=== PATIENT | male | born 1970 | race Caucasian/White ===

== ENCOUNTER 2020-04-16 14:08 | Inpatient (IN) | payer MEDICAID ==
[~2020-04-16] VITALS: Ht 180.3 cm; Wt 85.0 kg
[2020-04-16] MEDS: metoprolol tartrate 25mg tablet PO SCH
[2020-04-16] MEDS: olanzapine 10mg tablet PO SCH
[2020-04-16] MEDS ORDERED: normal saline 1000ml 1,000 ML IV ONE (14:55)
[2020-04-16 14:57] LABS: BASOPHILS # (AUTO) 0.1 X10'3 (0-0.2); BASOPHILS % (AUTO) 0.7 % (0-1); EOSINOPHILS # (AUTO) 0.3 X10'3 (0-0.9); EOSINOPHILS % (AUTO) 3.7 % (0-6); HEMATOCRIT 40.7 % (42.0-52.0); HEMOGLOBIN 13.9 g/dl (14.0-17.9); LYMPHOCYTES # (AUTO) 1.3 X10'3 (1.1-4.8); LYMPHOCYTES % (AUTO) 15.3 % (21-51); MEAN CORPUSCULAR HEMOGLOBIN 29.5 PG (27.0-31.0); MEAN CORPUSCULAR HGB CONC 34.1 g/dL (33.0-36.5); MEAN CORPUSCULAR VOLUME 86.4 FL (78-98); MEAN PLATELET VOLUME 8.7 FL (7.4-10.4); MONOCYTES # (AUTO) 0.9 X10'3 (0-0.9); MONOCYTES % (AUTO) 10.9 % (2-12); NEUTROPHILS # (AUTO) 5.9 X10'3 (1.8-7.7); NEUTROPHILS % (AUTO) 69.4 % (42-75); PLATELET COUNT 191 X10'3 (140-440); RED BLOOD COUNT 4.71 X10'6 (4.70-6.10); RED CELL DISTRIBUTION WIDTH 15.6 % (11.5-14.5); WHITE BLOOD COUNT 8.4 X10'3 (4.5-11.0)
[2020-04-16 15:09] LABS: D-DIMER 2.49 MG/L FEU (0-0.50)
[2020-04-16 15:14] LABS: ALANINE AMINOTRANSFERASE 112 U/L (12-78); ALBUMIN 4.1 G/DL (3.4-5.0); ALBUMIN/GLOBULIN RATIO 1.2 (1.1-1.5); ALKALINE PHOSPHATASE 101 IU/L (46-116); ANION GAP 14 (8-16); ASPARTATE AMINO TRANSFERASE 145 U/L (10-37); BILIRUBIN,TOTAL 0.4 MG/DL (0.1-1.0); BLOOD UREA NITROGEN 10 MG/DL (7-18); BUN/CREATININE RATIO 10.1 (5.4-32.0); CALCIUM 9.1 MG/DL (8.5-10.1); CHLORIDE 105 MMOL/L (99-107); CREATININE 0.99 MG/DL (0.60-1.10); GLUCOSE 115 MG/DL (70-104); SODIUM 142 MMOL/L (135-145); TOTAL CARBON DIOXIDE 22.7 MMOL/L (24-32); TOTAL PROTEIN 7.4 G/DL (6.4-8.2); eGFR 80 ML/MIN
[2020-04-16 15:24] LABS: POTASSIUM 4.2 MMOL/L (3.5-5.1)
[2020-04-16] MEDS ORDERED: aspirin 325mg tablet PO ONE (15:25)
[2020-04-16] MEDS ORDERED: iohexol 350MG/ML 100ml bottle IV ONE ×2 (15:25→16:02)
[2020-04-16] MEDS ORDERED: heparin 10,000 units/1 ML INJ IV PRN ×2 (15:30→17:25)
[2020-04-16] MEDS ORDERED: heparin 10,000 units/1 ML INJ IV ONE ×3 (15:30→17:25)
[2020-04-16] MEDS ORDERED: nitroGLYCERIN 0.4mg/hour patch TD ONE (15:35)
[2020-04-16 15:57] LABS: PARTIAL THROMBOPLASTIN TIME 23 SECONDS (22-32)
[2020-04-16 16:16] LABS: URINE AMPHETAMINE SCREEN NEGATIVE (Neg); URINE BARBITUATE SCREEN NEGATIVE (Neg); URINE BENZODIAZEPINES SCREEN NEGATIVE (Neg); URINE CANNABINOID SCREEN NEGATIVE (Neg); URINE COCAINE SCREEN NEGATIVE (Neg); URINE METHADONE SCREEN NEGATIVE (Neg); URINE OPIATE SCREEN NEGATIVE (Neg); URINE PHENCYCLIDINE SCREEN NEGATIVE (Neg)
[2020-04-16] MEDS: heparin 25,000 UNIT/250ml bag 250 ML IV SCH (16:17)
--- NOTE | 2020-04-16 16:37 | NUR ---
PA INFORMED PATIENT IS COVID POSITIVE
[2020-04-16] MEDS ORDERED: heparin 25,000 UNIT/250ml bag 250 ML IV SCH (17:25)
[2020-04-16] MEDS ORDERED: mag hydrox/Alum hydrox/simeth 30ml oral suspension PO PRN (17:25)
[2020-04-16] MEDS ORDERED: HYDROcodone/acetaminophen 10/325mg tab PO PRN (17:25)
[2020-04-16] MEDS ORDERED: HYDROcodone/acetaminophen 5mg/325mg tablet PO PRN (17:25)
[2020-04-16] MEDS ORDERED: morphine 2 MG/ML inj. syringe IV PRN ×2 (17:25)
[2020-04-16] MEDS ORDERED: ondansetron/PF 4mg/2ml inj IV PRN (17:25)
[2020-04-16] MEDS ORDERED: magnesium hydroxide 30ml (MOM) UD suspension PO PRN (17:25)
[2020-04-16] MEDS ORDERED: acetaminophen 325mg tablet PO PRN ×2 (17:25)
[2020-04-16] MEDS ORDERED: OLAN10TA19 PO (17:29)
[2020-04-16] MEDS ORDERED: ACET-2119 PO (17:29)
[2020-04-16] MEDS ORDERED: ESCI20TA PO (17:29)
[2020-04-16 18:02] LABS: HEMOGLOBIN A1C 5.6 % (4.5-6.2)
[2020-04-16 18:44] LABS: BASOPHILS # (AUTO) 0.1 X10'3 (0-0.2); EOSINOPHILS # (AUTO) 0.4 X10'3 (0-0.9); EOSINOPHILS % (AUTO) 5.6 % (0-6); HEMATOCRIT 39.3 % (42.0-52.0); HEMOGLOBIN 13.3 g/dl (14.0-17.9); LYMPHOCYTES # (AUTO) 1.7 X10'3 (1.1-4.8); LYMPHOCYTES % (AUTO) 23.6 % (21-51); MEAN CORPUSCULAR HEMOGLOBIN 29.4 PG (27.0-31.0); MEAN CORPUSCULAR HGB CONC 33.9 g/dL (33.0-36.5); MEAN CORPUSCULAR VOLUME 86.6 FL (78-98); MEAN PLATELET VOLUME 8.8 FL (7.4-10.4); MONOCYTES # (AUTO) 0.7 X10'3 (0-0.9); MONOCYTES % (AUTO) 9.4 % (2-12); NEUTROPHILS # (AUTO) 4.4 X10'3 (1.8-7.7); NEUTROPHILS % (AUTO) 60.4 % (42-75); PLATELET COUNT 190 X10'3 (140-440); RED BLOOD COUNT 4.54 X10'6 (4.70-6.10); RED CELL DISTRIBUTION WIDTH 15.4 % (11.5-14.5); WHITE BLOOD COUNT 7.3 X10'3 (4.5-11.0)
--- NOTE | 2020-04-16 18:49 | NUR ---
pt resting in bed with snack provided
[2020-04-16] MEDS ORDERED: ESCI20TA45 PO (19:45)
[2020-04-16] MEDS ORDERED: OLAN5TAB5 PO (19:45)
[2020-04-16] MEDS ORDERED: ondansetron 4mg rapidly disintigrating tab PO PRN (19:50)
--- NOTE | 2020-04-16 21:00 | NUR ---
Patient in room PCU 3013. I have received report from ER, RN and had the opportunity to ask questions and assume patient care.
[2020-04-16 22:00] VITALS: BP 115/78
[2020-04-17] MEDS: heparin 25,000 UNIT/250ml bag 250 ML IV SCH ×3 (00:30→14:40)
[2020-04-17 02:00] VITALS: BP 136/85
[2020-04-17 03:07] LABS: BASOPHILS # (AUTO) 0.1 X10'3 (0-0.2); BASOPHILS % (AUTO) 1.4 % (0-1); EOSINOPHILS # (AUTO) 0.3 X10'3 (0-0.9); EOSINOPHILS % (AUTO) 5.9 % (0-6); HEMATOCRIT 37.3 % (42.0-52.0); HEMOGLOBIN 12.7 g/dl (14.0-17.9); LYMPHOCYTES # (AUTO) 1.4 X10'3 (1.1-4.8); LYMPHOCYTES % (AUTO) 24.8 % (21-51); MEAN CORPUSCULAR HEMOGLOBIN 29.5 PG (27.0-31.0); MEAN CORPUSCULAR HGB CONC 34.1 g/dL (33.0-36.5); MEAN CORPUSCULAR VOLUME 86.5 FL (78-98); MEAN PLATELET VOLUME 8.8 FL (7.4-10.4); MONOCYTES # (AUTO) 0.6 X10'3 (0-0.9); NEUTROPHILS # (AUTO) 3.3 X10'3 (1.8-7.7); NEUTROPHILS % (AUTO) 57.9 % (42-75); PLATELET COUNT 146 X10'3 (140-440); RED BLOOD COUNT 4.31 X10'6 (4.70-6.10); RED CELL DISTRIBUTION WIDTH 15.4 % (11.5-14.5); WHITE BLOOD COUNT 5.6 X10'3 (4.5-11.0)
[2020-04-17 03:31] LABS: ALANINE AMINOTRANSFERASE 109 U/L (12-78); ALBUMIN 3.5 G/DL (3.4-5.0); ALBUMIN/GLOBULIN RATIO 1.1 (1.1-1.5); ALKALINE PHOSPHATASE 101 IU/L (46-116); ANION GAP 10 (8-16); ASPARTATE AMINO TRANSFERASE 130 U/L (10-37); BILIRUBIN,TOTAL 0.6 MG/DL (0.1-1.0); BLOOD UREA NITROGEN 12 MG/DL (7-18); BUN/CREATININE RATIO 11.9 (5.4-32.0); CALCIUM 9.7 MG/DL (8.5-10.1); CHLORIDE 106 MMOL/L (99-107); CHOL/HDL RATIO 2.9 (0.00-4.99); CHOLESTEROL 181 MG/DL (0-200); CREATININE 1.01 MG/DL (0.60-1.10); GLUCOSE 100 MG/DL (70-104); HDL CHOLESTEROL 63 MG/DL (35-60); LDL CHOLESTEROL 104 MG/DL (50-100); POTASSIUM 3.9 MMOL/L (3.5-5.1); SODIUM 144 MMOL/L (135-145); TOTAL CARBON DIOXIDE 28.2 MMOL/L (24-32); TOTAL PROTEIN 6.6 G/DL (6.4-8.2); TRIGLYCERIDES 70 MG/DL (20-135); eGFR 78 ML/MIN
--- NOTE | 2020-04-17 06:36 | NUR ---
Received report from Michelle WIN, [facility].
--- NOTE | 2020-04-17 06:48 | NUR ---
Problems reprioritized. Patient report given, questions answered & plan of care reviewed with QUIRINO Lopez.
[2020-04-17] MEDS: aspirin 81mg tablet.DR PO SCH (07:16)
[2020-04-17] MEDS: ESCITALOPRAM OXALATE 5 MG TABLET PO SCH (07:16)
[2020-04-17 07:20] VITALS: BP 140/70
[2020-04-17] MEDS: metoprolol tartrate 25mg tablet PO SCH ×2 (07:20→14:13)
[2020-04-17 13:56] VITALS: BP 141/96
[2020-04-17] MEDS: nitroGLYCERIN 0.4mg SUBLingual tab SL PRN ×3 (14:05→14:18)
--- NOTE | 2020-04-17 14:45 | NUR ---
AT 1400 C/O THROBBING PRESSURE CP 8/10 SINCE 0700 TODAY, EDUCATED PATIENT TO INFORM NURSE SOON CP STARTS. AT 1405 ADMINISTERED NITRO 0.4 MG SL X1 WITHOUT SUCCESS FOR PAIN RELIEF, ADMINISTERED 2ND NITRO AT 1413 BP 135/78 HR 83 WITH SUCCESS THAT DECREASED PAIN TO A 4/10, AT 1418 ADMINISTERED 3RD NITRO BP 120/81 HR 80 WITH FULL SUCCESS 0/10 PAIN. WILL CONT. TO MONITOR. PAGED AND MADE AWARE.
--- NOTE | 2020-04-17 15:21 | NUR ---
PAGED HOSP, "ELIZABETH [id number] SANYA DAVE HAD CP THAT RESOLVED WITH 3 NITRO. FYI. FURTHER ORDERS?"
--- NOTE | 2020-04-17 17:27 | NUR ---
PAGED HOSP, "ELIZABETH [id number] SANYA ERICKSON- WILL HE BE GETTING A CARDIAC CONSULT TODAY? HE'S STILL NPO." WAITING ON ORDERS.
[2020-04-17 17:48] VITALS: BP 131/90
--- NOTE | 2020-04-17 17:51 | NUR ---
PAGED HOSP, "JESSICA [id number]- SANYA ERICKSON-JUST DID TEMP IT'S 100.9 AX- ADMINISTERED TYLENOL. DO YOU WANT BLOOD CULTURES INITIATED?" Addendum: 04/17/20 at 1831 by Jessica Shanks RN CORRECTION. TEMP WAS 100.9 ORAL.
--- NOTE | 2020-04-17 18:35 | NUR ---
GAVE REPORT TO CECELIA WIN, TRANSFERRED CARE.
[2020-04-17] MEDS: CefTRIAXone/D5W-Rocephin 1gm 50 ML IV SCH (20:14)
[2020-04-17] MEDS: olanzapine 10mg tablet PO SCH (20:14)
[2020-04-17] MEDS: enoxaparin 80mg/0.8ml syringe SUBCUT SCH (20:15)
[2020-04-17] MEDS ORDERED: atorvastatin 20mg tablet PO SCH (21:00)
[2020-04-17 22:17] VITALS: BP 133/80
[2020-04-18 02:02] VITALS: BP 148/82
[2020-04-18 06:06] LABS: BASOPHILS # (AUTO) 0.1 X10'3 (0-0.2); BASOPHILS % (AUTO) 1.3 % (0-1); EOSINOPHILS # (AUTO) 0.3 X10'3 (0-0.9); EOSINOPHILS % (AUTO) 8.7 % (0-6); HEMATOCRIT 39.6 % (42.0-52.0); HEMOGLOBIN 13.4 g/dl (14.0-17.9); LYMPHOCYTES # (AUTO) 1.2 X10'3 (1.1-4.8); LYMPHOCYTES % (AUTO) 30.1 % (21-51); MEAN CORPUSCULAR HEMOGLOBIN 29.6 PG (27.0-31.0); MEAN CORPUSCULAR HGB CONC 33.8 g/dL (33.0-36.5); MEAN CORPUSCULAR VOLUME 87.4 FL (78-98); MEAN PLATELET VOLUME 9.6 FL (7.4-10.4); MONOCYTES # (AUTO) 0.3 X10'3 (0-0.9); MONOCYTES % (AUTO) 7.5 % (2-12); NEUTROPHILS % (AUTO) 52.4 % (42-75); PLATELET COUNT 132 X10'3 (140-440); RED BLOOD COUNT 4.53 X10'6 (4.70-6.10); RED CELL DISTRIBUTION WIDTH 15.3 % (11.5-14.5); WHITE BLOOD COUNT 3.8 X10'3 (4.5-11.0)
[2020-04-18 06:12] LABS: ALBUMIN 3.1 G/DL (3.4-5.0); ANION GAP 9 (8-16); BLOOD UREA NITROGEN 10 MG/DL (7-18); BUN/CREATININE RATIO 11.1 (5.4-32.0); CALCIUM 9.6 MG/DL (8.5-10.1); CHLORIDE 107 MMOL/L (99-107); GLUCOSE 87 MG/DL (70-104); POTASSIUM 4.1 MMOL/L (3.5-5.1); SODIUM 143 MMOL/L (135-145); TOTAL CARBON DIOXIDE 27.3 MMOL/L (24-32); eGFR 89 ML/MIN
--- NOTE | 2020-04-18 06:35 | NUR ---
Patient in room PCU 3013. I have received report from Zack Baker and had the opportunity to ask questions and assume patient care.
[2020-04-18] MEDS: enoxaparin 80mg/0.8ml syringe SUBCUT SCH (08:22)
[2020-04-18] MEDS: ESCITALOPRAM OXALATE 5 MG TABLET PO SCH (08:22)
[2020-04-18] MEDS: aspirin 81mg tablet.DR PO SCH (08:22)
[2020-04-18] MEDS: CefTRIAXone/D5W-Rocephin 1gm 50 ML IV SCH (08:22)
[2020-04-18] MEDS: metoprolol tartrate 25mg tablet PO SCH (08:55)
[2020-04-18 09:00] VITALS: BP 137/100
[2020-04-18] MEDS ORDERED: ATOR20TA66 PO (10:25)
[2020-04-18] MEDS ORDERED: LEVO750T46 PO (10:25)
[2020-04-18] MEDS ORDERED: ASPI-1071 PO (10:25)
[2020-04-18] MEDS ORDERED: metoprolol tartrate tablet PO (10:25)
[2020-04-18 11:28] LABS: ALANINE AMINOTRANSFERASE 115 U/L (12-78); ALBUMIN/GLOBULIN RATIO 0.9 (1.1-1.5); ALKALINE PHOSPHATASE 111 IU/L (46-116); ASPARTATE AMINO TRANSFERASE 104 U/L (10-37); BILIRUBIN,DIRECT 0.1 MG/DL (0-0.3); BILIRUBIN,TOTAL 0.3 MG/DL (0.1-1.0); TOTAL PROTEIN 6.6 G/DL (6.4-8.2)
[2020-04-18] MEDS ORDERED: iohexol 350MG/ML 100ml bottle IV ONE ×2 (11:52→12:19)
[2020-04-18 12:28] LABS: HBSAG SCREEN Negative (Negative); HEPATITIS C ANTIBODY <0.1 s/co ratio (0.0-0.9)
[2020-04-18] MEDS ORDERED: RIVA20TA PO (13:50)
[2020-04-18 15:00] VITALS: BP 129/89
--- NOTE | 2020-04-18 17:51 | NUR ---
Pt being DC to his personal tent - homeless camp. Pt tried to go to the hotel [facility] but was told because he was covid positive he could not go to hot. Dr Addison notified by Lyudmila upper caser that pt could not go to hot. Decision was made to DC him anyway by Dr Kennedy case management. Pt is A & O x4 and in no apparent distress, pt stated he is got a [facility] upper caser helping him with housing but it has not come through yet. Pt refused to go to [place]. Pt's decision to go to his tent. pt packed all of his belongings and is waiting for a taxi to take him to the [facility] where his tent pitched at, behind it. Pt was given several surgical masks, a sack lunch and a few drinks. Pt is still waiting for a taxi at shift change and will be DC after shift change. Pt has been informed about the issues with transportation and aware of the delays. Charge is aware and Dr Addison paged to informed him of delays.
[2020-04-18] MEDS ORDERED: CefTRIAXone/D5W-Rocephin 1gm 50 ML IV SCH (20:00)
== END 2020-04-18 18:13 | disposition home or self-care (01) | DRG 137 ==
LOC: EDBD 14:09 → ER 14:09 → ED HOLD 17:23 → PCU 3S 20:45
PROVIDERS: ADMIT Internal Medicine; ATTEND Internal Medicine
PROC: B32T1ZZ Computerized Tomography (CT Scan) of Left Pulmonary Artery using Low Osmolar Contrast (ICD-10-PCS; principal; 2020-04-16)
PROC: B32S1ZZ Computerized Tomography (CT Scan) of Right Pulmonary Artery using Low Osmolar Contrast (ICD-10-PCS; 2020-04-16)
DX: U07.1 COVID-19 (principal); I21.4 Non-ST elevation (NSTEMI) myocardial infarction; J12.89 Other viral pneumonia; R74.01 Elevation of levels of liver transaminase levels; F32.9 Major depressive disorder, single episode, unspecified; Z59.0 Homelessness; Z79.82 Long term (current) use of aspirin; Z79.899 Other long term (current) drug therapy
CPT/HCPCS: 36415; 71045; 71275; 80048; 80053; 80061; 80076; 80305; 83036; 83880; 84443; 84484; 85025; 85379; 85610; 85730; 86803; 87040; 87340; 87635; 93005; 93306; 93308; 96361; 96374; 96375; 96376; 99285; C9803; G0378; J0696; J1644; J1650; J2270; J7030; Q9967